=== PATIENT | male | born 1990 | race Caucasian/White ===

== ENCOUNTER 2018-02-19 20:37 | Emergency (ER) | payer OTHER ==
[~2018-02-19] VITALS: Ht 190.5 cm; Wt 122.5 kg
[2018-02-19 20:39] VITALS: BP 163/94
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
[2018-02-19] MEDS ORDERED: SILVADENE20 GM TOP (22:39)
== END 2018-02-19 23:28 ==
LOC: ERH 20:37
DX: T25.222A Burn of second degree of left foot, initial encounter (principal); X11.8XXA Contact with other hot tap-water, initial encounter; Y93.G3 Activity, cooking and baking; Y92.9 Unspecified place or not applicable